=== PATIENT | male | born 1955 | race Caucasian/White ===

== ENCOUNTER 2021-12-26 09:46 | Outpatient (CLI) | payer BC, SELFPAY ==
--- NOTE | 2021-12-26 09:49 | MR_ITS ---
WS: [id number] MRI BRAIN WITH HIGH-RESOLUTION IMAGING THROUGH THE INTERNAL AUDITORY CANALS WITHOUT AND WITH CONTRAST HISTORY: Tinnitus, RIGHT hearing loss. COMPARISON: None available. TECHNIQUE: Multiplanar, multisequence imaging is performed through the brain. Additional 3 mm imaging performed in multiple planes through the internal auditory canal. Postcontrast imaging with 19 ml's of MultiHance. No acute intracranial hemorrhage, midline shift, edema or mass effect. There are a few scattered subcortical T2 and FLAIR signal hyperintensities throughout the brain. Thes e are consistent with microvascular ischemic changes. No mass effect. No prior infarct. No significan t volume loss. Ventricles and extra-axial spaces are normal. No inferior displacement of cerebellar tonsils. Clivus and pituitary gland are normal. Internal and external auditory canals: Unremarkable. Cranial nerves VII and VIII complexes: Unremarkable. No enhancement or mass. Cerebellopontine angles: Normal. Paranasal sinuses: Moderate mucoperiosteal thickening in the frontal and frontoethmoidal recesses. Th ere is a small mucous retention cyst in the LEFT maxillary sinus. Mastoid air cells: There is increased minimal fluid in the RIGHT mastoid air cells. Calvarium and scalp: Normal. Visualized [place] and dural venous sinuses demonstrate no abnormality. MR/MR iac's wo/w con* [id number] IMPRESSION: 1. Normal internal auditory canals. 2. Small amount of fluid in the RIGHT mastoid air cells. 3. Mild chronic microvascular ischemic disease.
== END 2021-12-26 09:47 | disposition home or self-care (01) ==
LOC: RAD 09:48
PROVIDERS: PCP Family Medicine; Visit Provider Specialist
DX: H93.11 Tinnitus, right ear (principal); I67.82 Cerebral ischemia
CPT/HCPCS: 70553; A9577

== ENCOUNTER → 2022-08-08 09:48 | Outpatient (BNVA) | payer BC, SELFPAY | PROVIDERS: PCP Family Medicine; Visit Provider Family Medicine | DX: I10 Essential (primary) hypertension (principal); L20.9 Atopic dermatitis, unspecified; R53.83 Other fatigue | CPT/HCPCS: 80053; 84443; 85025; 85651; 86140 ==

== ENCOUNTER → 2022-11-21 10:28 | Outpatient (BNVA) | payer BC, SELFPAY | PROVIDERS: PCP Family Medicine; Visit Provider Family Medicine | DX: R30.0 Dysuria (principal); I10 Essential (primary) hypertension; Z71.6 Tobacco abuse counseling; F17.200 Nicotine dependence, unspecified, uncomplicated; Z13.220 Encounter for screening for lipoid disorders; L50.8 Other urticaria; R60.0 Localized edema; Z12.5 Encounter for screening for malignant neoplasm of prostate | CPT/HCPCS: 80053; 80061; 84153 ==

== ENCOUNTER → 2022-12-20 10:04 | Outpatient (BNVA) | payer BC, SELFPAY | PROVIDERS: PCP Family Medicine; Visit Provider Family Medicine | DX: L50.8 Other urticaria (principal) | CPT/HCPCS: 88304 ==

== ENCOUNTER → 2023-12-25 10:26 | Outpatient (BNVA) | payer BC, SELFPAY | PROVIDERS: PCP Family Medicine; Visit Provider Family Medicine | DX: J18.9 Pneumonia, unspecified organism (principal); J06.9 Acute upper respiratory infection, unspecified; B96.89 Other specified bacterial agents as the cause of diseases classified elsewhere; R06.02 Shortness of breath | CPT/HCPCS: 71046 ==

== ENCOUNTER → 2024-04-30 09:34 | Outpatient (BNVA) | payer BC, SELFPAY | PROVIDERS: PCP Family Medicine; Visit Provider Family Medicine | DX: M25.562 Pain in left knee; M13.862 Other specified arthritis, left knee | CPT/HCPCS: 73562 ==

== ENCOUNTER 2024-05-18 12:00 | Outpatient (CLI) | payer BC, SELFPAY ==
--- NOTE | 2024-05-18 12:00 | USCV_ITS ---
Osvaldo Delgado Age: 69 Gender: M : 1955 Exam Date: 05/18/2024 12:11 Ordering Phys: Lc Suarez MD Technologist: CT [place] [facility] [place]: melissa BP: 124 / 64 HR: 70 Rhythm: Sinus Technical Quality: Adequate MEASUREMENTS (Male / Female) Normal Values 2D ECHO LVOT Diameter 2.2 cm LV Ejection Fraction MOD 2C 55.8 % LV Ejection Fraction 2C AL 54.9 % LA Diameter 3.1 cm RA Systolic Volume 4C AL 38.6 ml RA Systolic Volume 4C MOD 36.6 ml LA Sys Volume AL 39.4 cm cubed LA Sys Volume Index AL 20.1 cm cubed/m squared Aorta at Sinotubular Diameter 2.2 cm IVC Diameter 2.2 cm M-MODE LA Ao Ratio MM 1.3 AV Cusp Separation MM 1.7 cm DOPPLER AV Peak Velocity 268.0 cm/s LVOT Peak Velocity 104.0 cm/s AV Area Cont Eq vti 1.6 cm squared AV Area Cont Eq pk 1.4 cm squared MV Peak Velocity 114.0 cm/s MV Area PHT 4.1 cm squared Mitral E to A Ratio 0.9 TV Peak E Velocity 69.0 cm/s Right Atrial Pressure 3.0 mmHg PV Peak Velocity 122.0 cm/s FINDINGS Left Ventricle Normal left ventricular size and systolic function, EF 56%.no regional wall motion abnormalities. Mild left ventricular hypertrophy. Grade I/IV diastolic dysfunction (abnormal relaxation filling pattern), normal to mildly elevated filling pressures. Right Ventricle The right ventricle is normal in size and function. Right Atrium The right atrium is normal in size. Left Atrium The left atrium is normal in size. Mitral Valve Structurally normal mitral valve. Aortic Valve Mild aortic valve stenosis, mean gradient 14.4 mmHg, BRIDGETT 1.6 cm squared. Tricuspid Valve Structurally normal tricuspid valve. Pulmonic Valve No gross abnormalities noted Pericardium Normal pericardium without effusion. Aorta Normal ascending aorta dimension. IVC Normal inferior vena cava. CONCLUSIONS Normal left ventricular size and systolic function, EF 56%.no regional wall motion abnormalities. Mild left ventricular hypertrophy. Grade I/IV diastolic dysfunction (abnormal relaxation filling pattern), normal to mildly elevated filling pressures. Mild aortic valve stenosis, mean gradient 14.4 mmHg, BRIDGETT 1.6 cm squared. There is no pericardial effusion. There are no intracardiac masses. No similar previous studies are available for comparison Dr Boston Shelby MD [facility] (Electronically Signed) Final Date: 18 May 2024 23:08 S
== END 2024-05-18 12:01 | disposition home or self-care (01) ==
PROVIDERS: PCP Family Medicine; Visit Provider Family Medicine
DX: R06.09 Other forms of dyspnea (principal); I51.7 Cardiomegaly; I35.0 Nonrheumatic aortic (valve) stenosis; I35.8 Other nonrheumatic aortic valve disorders
CPT/HCPCS: 93306

== ENCOUNTER 2024-05-19 08:22 | Outpatient (RCR) | payer BC, SELFPAY | END 2024-05-24 23:59 | disposition home or self-care (01) | LOC: SPT 08:22 | PROVIDERS: PCP Family Medicine; Visit Provider Family Medicine | DX: M25.562 Pain in left knee (principal) | CPT/HCPCS: 97161 ==

== ENCOUNTER 2024-11-27 08:15 | Outpatient (CLI) | payer BC, SELFPAY ==
--- NOTE | 2024-11-27 08:30 | USCV_ITS ---
Osvaldo Delgado Age: 69 Gender: M : 1955 Exam Date: 11/27/2024 08:54 Ordering Phys: Lc Suarez MD Technologist: CT [place] [facility] [place]: PROCEDURES: Venous duplex imaging was performed in only the left lower extremity. On the left side, the common femoral, superficial femoral, profunda femoral, popliteal, posterior tibial, greater saphenous veins, and the peroneal trunk were identified and interrogated in the standard fashion. These veins were found to be easily compressible with spontaneous blood flow. No evidence of insufficiency or thrombus noted. FINDINGS: No dvt CONCLUSIONS No evidence of left lower extremity DVT. Angel Rodríguez MD (Electronically Signed) Final Date: 27 November 2024 12:25 S
== END 2024-11-27 08:16 | disposition home or self-care (01) ==
LOC: RAD 08:18
PROVIDERS: PCP Family Medicine; Visit Provider Family Medicine
DX: I73.9 Peripheral vascular disease, unspecified (principal)
CPT/HCPCS: 93971

== ENCOUNTER 2024-11-30 12:45 | Outpatient (CLI) | payer BC, SELFPAY ==
--- NOTE | 2024-11-30 12:45 | USCV_ITS ---
Osvaldo Delgado Age: 69 Gender: M : 1955 Exam Date: 11/30/2024 12:59 Ordering Phys: Lc Suarez MD Technologist: DEMOND Exam Location: [facility] [place] Indication: Claudication Risk Factors: Previous Vascular Surgery: RIGHT LEFT BP: 133.0 / 71.00 BP: 141.0/ 74.00 0 0 Waveform Velocity (cm/s) Velocity (cm/s) Waveform Triphasic 184.9 Iliac Prox 108.9 Triphasic Triphasic 106.2 Iliac Mid 112.6 Triphasic Triphasic Iliac Distal Triphasic 173.6 114.2 Triphasic 185.0 POWER TONG OPERATOR 178.0 Triphasic Triphasic 128.0 SFA Prox 82.0 Triphasic Triphasic 106.0 SFA Mid 61.0 Triphasic Triphasic 97.0 SFA Dist 48.0 Monophasic Triphasic 82.0 POP 97.0 Monophasic Triphasic 115.0 BEER MAKER 20.0 Monophasic Monophasic 27.0 DPA 22.0 Monophasic 1.2 YI 0.5 FINDINGS Resting YI 1.2 on the right side and 0.5 on the left side Monophasic and continuous waveforms in the infrapopliteal vessels on the left side with a low amplitude Mild to moderate diffuse plaque in the iliac and femoral artery on the right side. Moderate to heavy diffuse plaque in the plaque in the left common femoral artery. Moderate to heavy diffuse plaque in the femoral and popliteal arteries on the left side CONCLUSIONS 1. Abnormal resting YI of 0.5 on the left side suggesting severe peripheral artery disease possibly at the level of the distal SFA with features of collateral filling in the infrapopliteal vessels. 2. Normal resting YI 1.2 on the right side Dr Boston Shelby MD [facility] (Electronically Signed) Final Date: 01 December 2024 17:15 S
== END 2024-11-30 12:46 | disposition home or self-care (01) ==
LOC: RAD 12:48
PROVIDERS: PCP Family Medicine; Visit Provider Family Medicine
DX: I73.9 Peripheral vascular disease, unspecified (principal); R93.89 Abnormal findings on diagnostic imaging of other specified body structures
CPT/HCPCS: 93925

== ENCOUNTER → 2024-12-10 12:56 | Outpatient (BNVA) | payer BC, SELFPAY | PROVIDERS: PCP Family Medicine; Visit Provider Internal Medicine Cardiovascular Disease | DX: R07.9 Chest pain, unspecified (principal) | CPT/HCPCS: 93005 ==

== ENCOUNTER 2024-12-29 05:57 | Outpatient (CLI) | payer BC, SELFPAY ==
[2024-12-29] VITALS (7 sets, daily range): BP systolic 114–143; BP diastolic 62–77; PULSE 75–98; RESP 14–20; TEMP 36.1–36.9; O2SAT 90–96; BMI 27.5
[2024-12-29 06:22] LABS: Basophils % 0.3 %; Eosinophils # 0.2 10^3/uL (0.0-0.8); Eosinophils % 3.7 %; Hematocrit 41.1 % (37-53); Lymphocytes # 1.2 10^3/uL (0.8-4.8); Lymphocytes % 19.6 %; Mean Corpuscular HGB Conc 31.4 g/dL (30-55); Mean Corpuscular Hemoglobin 27.4 pg (27-33); Mean Corpuscular Volume 87.3 fl (82-101); Mean Platelet Volume 8.5 fL (7.4-10.4); Monocytes # 0.6 10^3/uL (0.2-0.9); Monocytes % 8.7 %; Neutrophils # 4.24 10^3/uL (1.8-7.7); Neutrophils % 67.4 %; Nucleated Red Blood Cells % 0 %; Platelet Count 246 10^3/cmm (157-399); Red Blood Count 4.71 10^6/uL (3.85-5.65); Red Cell Distribution Width 14.2 % (12.1-15.1); White Blood Count 6.29 10^3/uL (3.29-11.43)
[2024-12-29] MEDS: aspirin 325 mg Tablet PO (06:36)
[2024-12-29 06:43] LABS: Anion Gap 13.1 (5-19); Blood Urea Nitrogen 22 mg/dL (8-23); Calcium 8.6 mg/dL (8.5-10.5); Carbon Dioxide 28 mmol/L (22-29); Chloride 100 mmol/L (98-107); Glucose 109 mg/dL (65-115); Osmolality Calculated 288 mOsm/kg (285-295); Potassium 4.1 mmol/L (3.5-5.1); Sodium 137 mmol/L (136-145)
--- NOTE | 2024-12-29 07:00 | XACV_ITS ---
Wt: 82 kg BSA: 2.00 m2 Any Known Allergies: Other Gender: Male : 1955 Exam Type: Invasive Peripheral Vascular Procedure(s): Procedure Description: Diagnostic procedure Procedure Description: Peripheral Cath Diagnostic Procedure Procedure Description: Abdominal aortic angiography Procedure Description: Lower extremities' angiography Procedure Description: Peripheral vascular Intervention Procedure Description: PV Balloon Procedure Description: PV Atherectomy Procedure Description: Miscellaneous Procedure Description: ACT Exam Priority: Routine KHAMU2, Aleman; Lower Extremity Diagnostic Findings Indication for peripheral angiogram: Lifestyle limiting claudication Catheters used: UF, microcatheter seeker, long 6 Danish sheathAbdominal aortogram: Using UF catheter which was placed at the level of T12, abdominal angiogram with runoff was obtained Right renal artery: No significant abnormality Left renal artery: Patent no significant abnormalityUsing right common femoral sheath right leg angiogram was obtainedRight common iliac: Patent Right external iliac: Patent Right internal iliac: Patent Right common femoral artery: Patent Right profundofemoral artery: Patent Right SFA: Patent Right popliteal artery: Patent Right tibioperoneal trunk: Patent Right posterior tibial artery: Patent Right anterior tibial artery: Chronically occluded in the proximal segment Right peroneal artery: PatentUsing long 6 Danish sheath selective angiogram of the left lower extremity was obtained Left common iliac artery: Patent Left external iliac artery:: Patent Left internal iliac artery: Patent Left common femoral artery: Patent Left profundofemoral artery: Patent Left SFA artery: Patent Using micro seeker catheter, left popliteal artery and below the knee angiogram was obtained: Left popliteal artery 100% chronically occluded appeared to be very calcified Left tibioperoneal artery: 100% chronically occluded Left anterior tibial artery 100% chronically occluded fills faintly with collateral Left posterior tibial artery: 100% chronically occluded in the proximal fills with collaterals and can be traced down to the foot Left peroneal artery: 100% chronically occluded and fills with collaterals. Lower Extremity Interventional Findings Percutaneous intervention of left popliteal and tibioperoneal trunk. Using seeker and Glidewire advantage we were able to cross with somewhat difficulty through the chronically occluded left popliteal artery and tibioperoneal trunk into the posterior tibial artery. Multiple balloon angioplasty using Belle 3 x 120 x 150 balloon was performed and tibioperoneal trunk. Using 4 x 100 x 135 Belle balloon we then dilated popliteal artery. Lutonix drug-coated balloon was then used for the final balloon angioplasty of the left popliteal artery. Excellent angiographic result with good flow was obtained. There was a moderate lesion in the tibioperoneal trunk which was left as it does not appear to be hemodynamically significant. At the end of the procedure there was 2 vessel runoff including posterior tibial peroneal while anterior tibial was felt through collateral as it is chronically blocked in the midsegment. Conclusions Status post balloon angioplasty and drug-coated balloon of left popliteal tibioperoneal trunk with excellent angiographic result and uatsdin of the flow below the knee with good two-vessel runoff including posterior tibial and peroneal artery. Recommendations 1-Return to inpatient for close monitoring and routine cath care 2-Risk factor modification for secondary prevention 3-Statin and aspirin 81 mg life-long, if tolerated 4-Continue Plavix 75mg p.o. daily for at least one year. We will assess at the end of one year again to continue if further or not 5-Continue optimal medical management 6-Follow up with Dr. Aleman in four weeks and your primary care in 10 days. Hemodynamic Data Phase:Rest AO : 138.0 / 54.0 ( 83.0 ) @ 8:23:00 AM Access Site Site: Right Femoral artery Sheath Size: 6 Fr Hemost... Method: Suture Hemost... Success: Successful Procedure Details Findings Procedure Consent Obtained. Admit Source: Out Patient. Pre-Procedure Time Out. Identified patient by full name and date of as verbalized by the patient/guarantor. Does the consent match the physician's order: Yes. Accurate & Complete Informed Consent: Yes. Inpatient/Outpatient History & Physical on Chart: Yes. If H&P is completed, is and addenduem needed: No; If yes, is the addendum complete: N/A. Visualize and Verify Site with Patient/Guarantor: N/A. Relevant Radiology Images available: N/A. The risks, benefits, and alternatives of sedation and/or procedure were discussed by physician. The patient agrees to continue. IV Site on Arrival: 20 gauge in the right anticubital. Patient received 250 ml IV bolus in CPRU prior to arrival. Procedure started. Correct patient, site and procedure confirmed by cath team. Current diagnosis: PVD; INTERMITTENT CLAUDICATION. PERRLA. Strong, equal hand general manager road production bilaterally. Lungs clear x 5 lobes. IV Fluids: 0.9% NaCl at KVO. 250 mL infused prior to laborer laboratory. IV fluid rate set to 100 ml/hr per MD. Pre Procedural Pulses: bilateral posterior tibial was Doppled. Pre Procedural Pulses: bilateral dorsalis pedis was Doppled. Oxygen started at 3liters/min via nasal canula. bilateral groins was prepped with chloroprep then draped in the usual sterile fashion. Physician notified. Physician arrived. Physician scrubbed in. Immediate Pre-Procedure Time Out. Correct Patient: Yes; Correct Procedure: Yes; Correct Site: Yes; Correct Patient Position: Yes; Correct Supplies: Yes; Dried Flammable Prep: Yes; Blood Products Available: N/A;. Lidocaine 1% infiltrated to the right groin. Arterial access obtained. A 5FrFr UF catheter in over wire. Pigtail postioned above the bifurcation of the iliacs. Aortagram performed @ 10 mL/sec for a total of 30 mL. UF catheter positioned into the left common Iliac over the Glidewire advantage. Glidewire advanced to the Profunda, Left . UR catheter removed over the wire. Sheath upsized to a 6 Fr. Left common femoral selected and arteriogram with runoff performed @ 10 mL/sec for a total of 30 mL. Seeker inserted. Wire pulled back and advanced down the SFA; Left. Wire/Seeker parked in the Distal SFA; Left. Attempting to cross the Popliteal/TPT trunk. Wire out. Hand injection of the distal popliteal performed. Glidewire advantage reinserted. Wire/Seeker advanced down the Operations Executive tibial on the left side. Glidewire removed. Hand injection of the Posterior tibial, Left taken. Viper advance wire inserted. Seeker removed. 1.5 CSI sneha inserted. Orbital atherectomy of distal popliteal/Tibial peroneal trunk of the left side performed. 2nd round of Orbital atherectomy of distal popliteal/Tibial peroneal trunk of the left side performed. 3rd round of Orbital atherectomy of distal popliteal/Tibial peroneal trunk of the left side performed. CSI sneha removed. Seeker cather inserted over the viper wire. Viper wire removed. ACT drawn. Results 336 seconds. Therapeutic limits - pre-heparin administration 90-150 seconds and monitoring heparin during a vascular procedure >250 seconds. Command wire (300 cm) inserted through the seeker cather to the posterio tibial; left. Seeker catheter removed. Inflation number : 1 A AB ARMADA 14 OTW [id number] was prepped and advanced across the Proximal Posterior Tibial, Left , then inflated to 4 GOMEZ for 2:01 seconds. Inflation number: 2 The AB ARMADA 14 OTW [id number] was reinflated across the Proximal Posterior Tibial, Left, to 4 GOMEZ for 1:00 seconds. Inflation number: 1 The AB ARMADA 14 OTW [id number] was reinflated across the Tibial Peroneal Trunk, Left, to 4 GOMEZ for 1:26 seconds. Inflation number: 1 The AB ARMADA 14 OTW [id number] was reinflated across the Popliteal, Left, to 8 GOMEZ for 1:30 seconds. Inflation number: 2 The AB ARMADA 14 OTW [id number] was reinflated across the Popliteal, Left, to 8 GOMEZ for 0:59 seconds. Inflation number: 3 The AB ARMADA 14 OTW [id number] was reinflated across the Popliteal, Left, to 8 GOMEZ for 2:00 seconds. Balloon out. Inflation number : 2 A AB ARMADA 35 OTW [id number] was prepped and advanced across the Tibial Peroneal Trunk, Left , then inflated to 8 GOMEZ for 2:00 seconds. Inflation number: 3 The AB ARMADA 35 OTW [id number] was reinflated across the Tibial Peroneal Trunk, Left, to 8 GOMEZ for 0:33 seconds. Inflation number: 4 The AB ARMADA 35 OTW [id number] was reinflated across the Popliteal, Left, to 8 GOMEZ for 0:31 seconds. Balloon out. Left common femoral selected and arteriogram with runoff performed @ 10 mL/sec for a total of 30 mL. ACT drawn. Results 360 seconds. Therapeutic limits - pre-heparin administration 90-150 seconds and monitoring heparin during a vascular procedure >250 seconds. Inflation number : 5 A Lutonix 035 DCB (5.0X100) was prepped and advanced across the Popliteal, Left , then inflated to 6 GOMEZ for 2:00 seconds. Balloon out. Left common femoral selected and arteriogram with runoff performed @ 10 mL/sec for a total of 30 mL. Command wire out. Sheath exchanged to a 6 fr short sheath. Right common femoral selected and arteriogram with runoff performed @ 10 mL/sec for a total of 30 mL. Physician review of films. Physician scrubbed out. Vital chart was stopped. Sheath upsized to a 6 Fr. A Suture was successful obtaining hemostatsis at the Right Femoral artery insertion site. Sheath(s) sutured into position with 2-0 silk and sterile 4x4's and Op-site applied over the site. No oozing or signs and symptoms of hematoma noted. Arterial sheath flushed and connected to tranducer and pressure bag with heparinized saline. Post Procedure: Pulses reassessed and unchanged. PERRLA. Strong, equal hand general manager road production bilaterally. No VTE prophylaxis required. Medication's Wasted: Lidocaine 1% = 3 mL. Medication's Wasted: Nitro = 49.2 mg. Medication's Wasted: Heparin = 1000 units. Total IV fluids: 109 mL. Fluoro: 23:07. Contrast type used: Visipaque 320 mgI/mL, 200 mL bottle. [id number]. 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 Complications: None. Estimated blood loss: 5mL-10mL. Responsiveness - Normal response to verbal stimuli; alert and oriented, PERRLA. Airway - Unaffected, no intervention required; spontaneous ventilation. Circulation: W/N/L, pulses unchanged. Nausea/Vomiting: No. Procedure completed. Patient transferred by bed to 1st floor. Procedure started. Procedure Medications Start: 8:01 AM Stop: 8:01 AM Medication: Solu-Medrol (methylprednisolone) Amount: 125 mg Route: I.V. Start: 8:01 AM Stop: 8:01 AM Medication: Benadryl Amount: 50 mg Route: I.V. Start: 8:05 AM Stop: 8:05 AM Medication: Versed Amount: 1 mg Route: I.V. Start: 8:07 AM Stop: 8:07 AM Medication: Fentanyl Amount: 50 mcg Route: I.V. Start: 8:13 AM Stop: 8:13 AM Medication: Versed Amount: 1 mg Route: I.V. Start: 8:19 AM Stop: 8:19 AM Medication: Versed 1 mg and Fentanyl 25 mcg Amount: 1 Route: I.V. Start: 8:52 AM Stop: 8:52 AM Medication: Heparin Amount: 6000 units Route: I.V. Start: 8:57 AM Stop: 8:57 AM Medication: Versed 1 mg and Fentanyl 25 mcg Amount: 1 Route: I.V. Start: 8:58 AM Stop: 8:58 AM Medication: Heparin Amount: 2000 units Route: I.V. Start: 9:13 AM Stop: 9:13 AM Medication: Versed 1 mg and Fentanyl 25 mcg Amount: 1 Route: I.V. Start: 9:24 AM Stop: 9:24 AM Medication: Fentanyl Amount: 25 mcg Route: I.V. Start: 9:32 AM Stop: 9:32 AM Medication: Versed 1 mg and Fentanyl 25 mcg Amount: 1 Route: I.V. Start: 9:37 AM Stop: 9:37 AM Medication: Nitrogylcerin Amount: 400 mcg Route: I.A. Start: 9:50 AM Stop: 9:50 AM Medication: Nitrogylcerin Amount: 400 mcg Route: I.A. Start: 9:56 AM Stop: 9:56 AM Medication: Plavix Amount: 300 mg Route: P.O. Start: 9:56 AM Stop: 9:56 AM Medication: Fentanyl Amount: 25 mcg Route: I.V. I, the attending physician, have reviewed and verified all procedure medications. Yes, all medications given per verbal order History/Risk Factors Hypertension: Yes Dyslipidemia: Yes Peripheral Arterial Disease (PAD): Yes Obesity: No Renal Disease: No Prior Interventions PCI: No CABG: No Valve Surgery: No Report Signatures Finalized by Bib Aleman MD on 01/09/2025 04:22 PM
--- NOTE | 2024-12-29 08:09 | W.PM.OPSUD ---
Surgery/Procedure H&P Update DATE OF PROCEDURE: December 29, 2024 DATE H&P PERFORMED: 12/10/24 H&P UPDATE INFORMATION: I have reviewed H&P completed within last 30 days, I have examined patient prior to procedure and No changes to prior documentation PREOP DIAGNOSIS: Lifestyle limiting claudication of left leg PLANNED PROCEDURE: Operation Date: 12/29/24 07:00 Proposed Procedures p Peripheral Diagnostic - Peripheral Angiogram(Not Applicable) - Bib Aleman MD PATIENT REASSESSED PRIOR TO SEDATION, WITH NO CHANGE NOTED: Yes PHYSICAL EXAM: alert, oriented x 3, clear to auscultation bilaterally, regular rate & rhythm and operative site marked AIRWAY EVAL/ANESTHESIA PLAN: ASA II, Risks, benefits & alternatives of sedation and/or procedure discussed and Patient agrees to continue as planned ADDITIONAL INFORMATION: All risk-benefit and alternative for the procedure including stroke major bleed urgent or emergent vascular/surgery, limb threatening ischemia, amputation, limb loss, contrast-induced nephropathy leading to temporary or permanent renal failure. Patient agrees to it and would like to proceed with it. Alpha gal allergy was discussed, patient was premedicated with Solu-Medrol and Benadryl.
--- NOTE | 2024-12-29 10:07 | PM.PROC ---
Procedure Note: Date of procedure: 12/29/24 Pre-procedure diagnosis: Lifestyle-limiting claudication Procedure: Lifestyle limiting claudication: Peripheral angiogram was performed because of severe lifestyle limiting claudication. Patient was noted to have 100% chronically occluded left popliteal, tibioperoneal and below the knee arteries. After crossing with seeker and Glidewire, Viper wire was swapped through the seeker. Using 1.5 CSI bur atherectomy was performed in the popliteal and tibioperoneal trunk. Balloon angioplasty of proximal posterior tibial, tibioperoneal trunk, popliteal artery was performed. Lutonix drug-coated balloon was used to post dilate popliteal artery. Excellent angiographic result with good blood flow noted at the end of the case. Two-vessel runoff including posterior tibial peroneal artery was noted. Foot arch was reconstituted through those 2 vessels with collaterals towards the anterior tibial Plan Because of underlying chronic kidney disease we will continue IV fluid 100 mL/h for next 12-hour in order to prevent contrast induced nephropathy. Will recheck BMP CBC normal Once PTT is less than 45 right common femoral sheath will come out. Plavix 300 mg along with aspirin 81 mg will be given today. Continue home medications. Possible discharge tomorrow Full note to be dictated. Coding Level of Care Code Acute Code for Pawan Fwashley
[2024-12-29] MEDS: sodium chloride 0.9% 1,000 ML 100 ML IV (10:15)
[2024-12-29 13:29] LABS: Partial Thromboplastin Time 49.9 SECONDS (23.9-36.7)
[2024-12-29] MEDS: fentaNYL 50 mcg/mL INJ 2mL IVP (13:58)
[2024-12-29] MEDS: aspirin 81 mg EC Tablet PO (14:56)
[2024-12-29] MEDS: acetaminophen 325 mg Tablet 650 MG PO ×2 (15:30→21:18)
--- NOTE | 2024-12-29 19:59 | PC.NURSE ---
1400 sheath removed explained procedure to pt. 6 fr sheath removed on right groin. manual pressure held for 20 mins. No hematoma, swelling or bleeding noted. posterior tibial pulses are palpated+3. legs are warm. explained to pt about activity restriction and 6 hr bedrest. call light provided.
--- NOTE | 2024-12-29 20:03 | PC.NURSE ---
1054 received pt from lab systems analyst. pt is alert, orientedx4. denies any pain or discomfort. noted swelling on right leg and upper thigh. pt and stated the pt has had swelling previously and it is normal, stated his right leg is usually swollen than the left leg. pedal pulses palpable posterior tibial. call light provided to pt. educated pt on activity restrictions such as bedrest and no lifting on his right hip and leg.
[2024-12-30 00:46] VITALS: BP 123/69; PULSE 95; RESP 16; O2SAT 91
[2024-12-30 03:45] LABS: Basophils % 0.1 %; Hematocrit 37.2 % (37-53); Lymphocytes # 0.6 10^3/uL (0.8-4.8); Lymphocytes % 4.5 %; Mean Corpuscular HGB Conc 31.7 g/dL (30-55); Mean Corpuscular Hemoglobin 27.8 pg (27-33); Mean Corpuscular Volume 87.7 fl (82-101); Mean Platelet Volume 8.5 fL (7.4-10.4); Monocytes # 0.3 10^3/uL (0.2-0.9); Monocytes % 1.9 %; Neutrophils # 12.11 10^3/uL (1.8-7.7); Neutrophils % 93.1 %; Nucleated Red Blood Cells % 0 %; Platelet Count 246 10^3/cmm (157-399); Red Blood Count 4.24 10^6/uL (3.85-5.65); Red Cell Distribution Width 13.9 % (12.1-15.1); White Blood Count 13.01 10^3/uL (3.29-11.43)
[2024-12-30 04:10] LABS: Anion Gap 14.5 (5-19); Blood Urea Nitrogen 27 mg/dL (8-23); Calcium 8.2 mg/dL (8.5-10.5); Carbon Dioxide 23 mmol/L (22-29); Chloride 102 mmol/L (98-107); Creatinine Clr Calc Pharmacy 47.2011; Glucose 140 mg/dL (65-115); Osmolality Calculated 287 mOsm/kg (285-295); Potassium 4.5 mmol/L (3.5-5.1); Sodium 135 mmol/L (136-145)
[2024-12-30 04:59] VITALS: BP 131/66; PULSE 95; RESP 18; TEMP 36.8; O2SAT 92
[2024-12-30 05:44] VITALS: PULSE 93
[2024-12-30 08:00] VITALS: BP 143/65; PULSE 95; RESP 20; TEMP 36.5; O2SAT 92
[2024-12-30] MEDS: aspirin 81 mg EC Tablet PO (08:19)
[2024-12-30] MEDS: clopidogrel 75 mg Tablet PO (08:19)
--- NOTE | 2024-12-30 11:43 | PC.NURSE ---
right groin (cath site) drsg is dry and intact.no hematoma noted.right leg is warm to touch and with brisk capillary refill
[2024-12-30 12:00] VITALS: BP 145/66; PULSE 88; RESP 18; TEMP 36.4; O2SAT 95
--- NOTE | 2024-12-30 15:02 | P.DS_ITS ---
<Statement entered by Bib Aleman MD - 12/31/24 00:19> Patient was evaluated and cared for in conjunction with an advanced practice practitioner. I personally examined the patient and reviewed the chart and all pertinent data including imaging, telemetry, and laboratory results. I discussed the patient in detail with the advanced practice practitioner. Please see their note for complete H&P testing result and agreed upon plan of care for the patient. Discharge Providers Date of Admission: 12/29/2024 Date of Discharge: December 30, 2024 Attending Provider at Admission: Dr. Aleman Attending Provider at Discharge: Bib Aleman MD Primary Care Provider: Lc Suarez MD Reason for Visit Reason for Visit: I73.9 Brief History: The patient is a 69-year-old male presenting with lifestyle-limiting claudication. The claudication started as cramping in the left calf, progressing into the diallo and foot, eventually developing into throbbing pain. The patient reported a significant reduction in exercise tolerance attributed to these symptoms. He has a history of tobacco use, smoking for the past 50 years. The patient also noted swelling in the left leg for the past couple of months, and similar painful sensations have recently developed in the right foot. There is no reported history of heart problems, chest pain, or stroke-like symptoms. Blood pressure has been typically running between 125 to 130 mmHg. Heart studies have indicated a leaky heart valve, considered manageable for his age. He has not been sleeping well due to foot cramps, which wake him from sleep. Previously, he had undergone an ankle-brachial index (YI) test and ultrasound showing blockage in the left femoral and popliteal arteries. Despite these ongoing issues, the swelling in his legs does not substantially decrease by morning. Hospital Course Hospital Course Peripheral angiogram was performed because of severe lifestyle limiting claudication. Patient was noted to have 100% chronically occluded left popliteal, tibioperoneal and below the knee arteries. After crossing with seeker and Glidewire, Viper wire was swapped through the seeker. Using 1.5 CSI bur atherectomy was performed in the popliteal and tibioperoneal trunk. Balloon angioplasty of proximal posterior tibial, tibioperoneal trunk, popliteal artery was performed. Lutonix drug-coated balloon was used to post dilate popliteal artery. Excellent angiographic result with good blood flow noted at the end of the case. Two-vessel runoff including posterior tibial peroneal artery was noted. Foot arch was reconstituted through those 2 vessels with collaterals towards the anterior tibial. Patient was given fluids. Creatinine decreased to 1.5 from 1.6. Patient had excellent pulses after w/o complications. Physical Exam Narrative: General: No apparent distress, healthy appearing, well nourished HENMT: normoceophalic Neck: bilateral carotid bruit Muskuloskeletal: Full ROM Lymphatic: no lymphedema noted Respiratory: Normal respiratory effort, clear to auscultation bilaterally throughout all lung epstein, no use of accessory muscles Cardio: No JVD, regular rate, regular rhythm, S1 S2 normal, no murmurs, peripheral pulses 2+ radial palpated bilaterally Pulses: 2+ biphasic PT and DP bilateral lower extremities dopplered GI: Normal to inspection, nondistended Extremities: Full ROM, normal, normal capillary refill, no cyanosis or edema Neuro: Alert and oriented x4, no focal motor deficits Psych: Affect normal, denies suicidal ideation, mental status grossly normal Skin: right groin insertion site clean, dry, intat w/o s/s of hematoma Discharge Data Studies Completed and Pending Pending at discharge Category Date Time Status FINAL FINISHER FORGING DIES request for service Routine Exams 12/29/24 07:00 Taken Laboratory Results WBC 13.01 10^3/uL (3.29-11.43) H 12/30/24 03:20 RBC 4.24 10^6/uL (3.85-5.65) 12/30/24 03:20 Hgb 11.80 g/dL (11.27-16.99) 12/30/24 03:20 Hct 37.2 % (37-53) 12/30/24 03:20 MCV 87.7 fl (82-101) 12/30/24 03:20 MCH 27.8 pg (27-33) 12/30/24 03:20 MCHC 31.7 g/dL (30-55) 12/30/24 03:20 RDW 13.9 % (12.1-15.1) 12/30/24 03:20 Plt Count 246 10^3/cmm (157-399) 12/30/24 03:20 MPV 8.5 fL (7.4-10.4) 12/30/24 03:20 Neut % (Auto) 93.1 % 12/30/24 03:20 Lymph % (Auto) 4.5 % 12/30/24 03:20 [place] % (Auto) 1.9 % 12/30/24 03:20 Eos % (Auto) 0.0 % 12/30/24 03:20 Baso % (Auto) 0.1 % 12/30/24 03:20 Neut # (Auto) 12.11 10^3/uL (1.8-7.7) H 12/30/24 03:20 Lymph # (Auto) 0.6 10^3/uL (0.8-4.8) L 12/30/24 03:20 [place] # (Auto) 0.3 10^3/uL (0.2-0.9) 12/30/24 03:20 Eos # (Auto) 0.0 10^3/uL (0.0-0.8) 12/30/24 03:20 Baso # (Auto) 0.0 10^3/uL (0.0-0.1) 12/30/24 03:20 Nucleated RBC % (auto) 0 % 12/30/24 03:20 Nucleated RBCs # 0.0 /100WBC 12/30/24 03:20 APTT 49.9 SECONDS (23.9-36.7) H 12/29/24 13:01 Sodium 135 mmol/L (136-145) L 12/30/24 03:20 Potassium 4.5 mmol/L (3.5-5.1) 12/30/24 03:20 Chloride 102 mmol/L (98-107) 12/30/24 03:20 Carbon Dioxide 23 mmol/L (22-29) 12/30/24 03:20 Anion Gap 14.5 (5-19) 12/30/24 03:20 BUN 27 mg/dL (8-23) H 12/30/24 03:20 Creatinine 1.5 mg/dL (0.7-1.2) H 12/30/24 03:20 GFR Calculation Not Reportable 12/30/24 03:20 Glucose 140 mg/dL (65-115) H 12/30/24 03:20 Calculated Osmolality 287 mOsm/kg (285-295) 12/30/24 03:20 Calcium 8.2 mg/dL (8.5-10.5) L 12/30/24 03:20 Procedures Performed Peripheral angiogram was performed because of severe lifestyle limiting claudication. Patient was noted to have 100% chronically occluded left popliteal, tibioperoneal and below the knee arteries. After crossing with seeker and Glidewire, Viper wire was swapped through the seeker. Using 1.5 CSI bur atherectomy was performed in the popliteal and tibioperoneal trunk. Balloon angioplasty of proximal posterior tibial, tibioperoneal trunk, popliteal artery was performed. Lutonix drug-coated balloon was used to post dilate popliteal artery. Excellent angiographic result with good blood flow noted at the end of the case. Two-vessel runoff including posterior tibial peroneal artery was noted. Foot arch was reconstituted through those 2 vessels with collaterals towards the anterior tibial Vitals Last Vital Signs Temp 97.6 F 12/30/24 12:00 Pulse 88 12/30/24 12:00 Resp 18 12/30/24 12:00 BP 145/66 12/30/24 12:00 Pulse Ox 95 12/30/24 12:00 O2 Del Method Room Air 12/30/24 12:00 Discharge Plan Discharge Patient Disposition: Home Prescriptions: New Xarelto 2.5 mg tablet 2.5 mg PO BID Qty: 90 0RF pantoprazole [Protonix] 40 mg tablet,delayed release (DR/EC) 40 mg PO DAILY Qty: 90 0RF clopidogrel [Plavix] 75 mg tablet 75 mg PO DAILY 90 Days Qty: 90 0RF Continued triamcinolone acetonide 0.1 % ointment 1 applic topical DAILY PRN (Reason: itch) ipratropium bromide 0.02 % solution 2.5 ml inhalation Q6H PRN (Reason: shortness of breath or wheezing) Qty: 75 2RF albuterol sulfate 2.5 mg /3 mL (0.083 %) solution for nebulization 2.5 mg inhalation QID PRN (Reason: shortness of breath) Qty: 90 2RF (DME) nebulizer and supplies See Rx Instructions .Route .MEDSUPPLY Qty: 1 0RF Rx Instructions: As directed albuterol sulfate 90 mcg/actuation HFA aerosol inhaler See Rx Instructions .ROUTE .COMPLEX Qty: 8.5 11RF Dose Instruction: INHALE 2 PUFFS BY MOUTH EVERY 4 HOURS Rx Instructions: INHALE 2 PUFFS BY MOUTH EVERY 4 HOURS cetirizine [Zyrtec] 10 mg tablet 10 mg PO BID Qty: 60 3RF triamcinolone acetonide [Nasacort] 55 mcg aerosol,spray 2 spray intranasal DAILY Qty: 16.9 0RF Rx Instructions: administer into each nostril atorvastatin 40 mg tablet See Rx Instructions .ROUTE .COMPLEX Qty: 90 0RF Dose Instruction: TAKE 1 TABLET BY MOUTH EVERY DAY Rx Instructions: TAKE 1 TABLET BY MOUTH EVERY DAY Breo Ellipta 50-25 mcg/dose blister with device 1 inh inhalation DAILY Qty: 60 2RF montelukast [Singulair] 10 mg tablet 10 mg PO DAILY Qty: 90 1RF amlodipine 5 mg tablet See Rx Instructions .ROUTE .COMPLEX Qty: 135 0RF Dose Instruction: TAKE 1 AND 1/2 TABLETS DAILY BY MOUTH Rx Instructions: TAKE 1 AND 1/2 TABLETS DAILY BY MOUTH Discontinued famotidine 20 mg tablet 20 mg PO BID Qty: 180 1RF torsemide 20 mg tablet 20 mg PO QAM Qty: 30 1RF cilostazol 50 mg tablet 50 mg PO BID Qty: 180 1RF Discharge Orders: Discharge Order (Routine); Ordered 12/30/24 Ordered By: Era Cameron Other Ambulatory Orders: Basic Metabolic Panel (Routine) Timeframe: 3 Days Facility: [facility] - Location: Lab - Main Lab Ordered By: Era Cameron CV carotid duplex BI* [id number] (Routine) Timeframe: 2 Weeks Facility: [facility] - Location: Radiology [facility] Ordered By: Era Cameron Referrals: Rupali Dempsey FNP [Nurse Practitioner] - 01/06/25 3:00 pm Lc Suarez MD [Primary Care Provider] - 01/11/25 10:30 am (This appointment will be scheduled with Kassandra Jeter. ) Diet: Advance as tolerated Activity: Increase activity as tolerated Patient Instructions: Peripheral Vascular Angioplasty (DC), Post Angiogram Home Care Instructions Activity Restrictions/Additional Instructions: Discussed with patient no heavy lifting more than a gallon of milk as well as going up or down steps for 3 days[address] No driving for 3 days. Monitor for and report signs or symptoms of bleeding. Monitor for and report s/s of infection such as fever 101 or greater, swelling, redness or pain to the groin. Patient will be discharged home on xarelto and Plavix for 3 months, then can take aspirin 81 mg only. We will see him in the clinic in 7-10 days. Smoking cessation was advised. Because patient has bilateral carotid bruit worse on the right, a carotid doppler will be performed on outpatient basis. Print Language: Swazi Discharge Date/Time: 12/30/24 13:40 Discharge Attestations Time Spent in Discharge Care*: less than 30 min Time Spent in Smoking Cessation: 3 to 10 minutes Quality Metrics Clinical Quality Measures [ No reported AMI, CVA or VTE this stay] Coding Level of Care Code Acute Code for Chg Fwd
--- NOTE | 2024-12-30 15:31 | PC.NURSE ---
discharge instructions given and explained.pt verb understanding of instructions.discharged via w/c to exit at this time.spouse to drive pt home
[2024-12-30 15:33] VITALS: BP 145/66; PULSE 75; RESP 20; O2SAT 92
== END 2024-12-30 15:35 | disposition home or self-care (01) ==
LOC: CCL 05:58 → CSU 10:54
PROVIDERS: PCP Family Medicine; Visit Provider Internal Medicine Cardiovascular Disease
DX: I70.212 Atherosclerosis of native arteries of extremities with intermittent claudication, left leg (principal); I70.92 Chronic total occlusion of artery of the extremities; R09.89 Other specified symptoms and signs involving the circulatory and respiratory systems; I12.9 Hypertensive chronic kidney disease with stage 1 through stage 4 chronic kidney disease, or unspecified chronic kidney disease; N18.9 Chronic kidney disease, unspecified; E78.00 Pure hypercholesterolemia, unspecified; F17.210 Nicotine dependence, cigarettes, uncomplicated
CPT/HCPCS: 36415; 37224; 37225; 37228; 37233; 75625; 75716; 80048; 85025; 85347; 85730; 96374; 96375; 96376; 99152; 99153; C1724; C1725; C1769; C1887; C1894; C2623; J1200; J1644; J2250; J2919; J3010; J3490; J7030; Q9967

== ENCOUNTER → 2025-01-20 16:05 | Outpatient (BNVA) | payer BC, SELFPAY | PROVIDERS: PCP Family Medicine; Visit Provider Nurse Practitioner Family | DX: I73.9 Peripheral vascular disease, unspecified (principal); Z09 Encounter for follow-up examination after completed treatment for conditions other than malignant neoplasm | CPT/HCPCS: 36415; 80048 ==

== ENCOUNTER 2025-04-13 15:00 | Observation (INO) | payer MEDICARE, SELFPAY ==
[2025-04-13] VITALS (7 sets, daily range): BP systolic 119–156; BP diastolic 74–113; PULSE 71–94; RESP 15–18; TEMP 36.5–36.8; O2SAT 92–98; BMI 26.1
--- NOTE | 2025-04-13 07:30 | XACV_ITS ---
Ht: 173 cm Wt: 78 kg BSA: 1.95 m2 Any Known Allergies: Other Gender: Male : 1955 Exam Type: Invasive Peripheral Vascular Procedure(s): Procedure Description: Peripheral vascular Intervention Procedure Description: PV Balloon Procedure Description: PV Stent Procedure Description: PV Atherectomy Exam Priority: Routine [facility]; Conclusions a Indication for peripheral angiogram: Critical limb ischemia Catheters used:Rim. Long 6 [place] Citizen sheath, seekerAbdominal aortogram: Not performed Right renal artery: Not performed Left renal artery: Not performed Selective angiogram of the left lower extremity was performed using long 6 [place] Citizen sheath Left common iliac artery: Patent Left external iliac artery: Patent Left common femoral artery: Patent Left profundofemoral artery: Patent Left SFA artery: Patent Left popliteal artery: Moderate to high-grade calcified stenosis, while crossing with a wire it was stable to cross the lesion Left tibioperoneal artery: Mid moderate to high-grade stenosis at the origin of left anterior tibial artery Left anterior tibial artery: Chronically occluded calcified vessel in the proximal segment no flow in the mid to distal is noted Left posterior tibial artery: Patent all the way to the foot forming the arch Left peroneal artery: Patent all the way to the foot. Left anterior tibial artery atherectomy: Left anterior tibial artery was first crossed with Glidewire with somewhat difficulty which was switched over to a Viper wire through noelle, using 1.25 sneha CSI atherectomy multiple runs were performed in anterior tibial artery from proximal to distal segment. Viperwire was then exchanged out with a run-through wire using 2.5 x 120 x 150 [place] balloon multiple balloon angioplasty of the left anterior tibial artery was performed from distal to proximal segment, despite of that we were not able to restore the flow, it was observed there is possible dissection in the proximal anterior tibial artery, we then deployed BTK scaffold system 3.0 x 28mm, it was then postdilated with noncompliant balloon, despite of that we were not able to restore the flow, since it is already occluded chronic artery despite of atherectomy balloon angioplasty and scaffold deployment were not able to restore the flow therefore we decided to perform balloon angioplasty of the mid tibioperoneal trunk and popliteal artery which has eccentric high-grade stenosis because of calcified inner vessel as no wire was not crossing multiple time and had difficulty in crossing it.Balloon angioplasty of the mid tibioperoneal trunk was performed using 4 x 40 x 150 [place] balloon at high atmospheres for 2 minutes with good angiographic result which improved eccentric 70 to 80% stenosis to 30 to 40%Angioplasty of the distal popliteal artery: Using 6.0x100 x 135 mm [place] AB balloon balloon angioplasty of the popliteal left artery was performed revealing good result. Two-vessel good runoff was noted in anterior tibial and left peroneal artery however we were not able to open up left anterior descending artery since we have 2 good vessel runoff which provide supply hopefully patient will develop some collateral through these 2 vessel towards left anterior tibial artery and since we have already performed balloon angioplasty of the popliteal left artery and tibioperoneal trunk we think hopefully with improved and blood flow it will improve patient walking distance and reduce critical limb ischemia episode. Recommendations 1-Return to inpatient for close monitoring and routine cath care 2-Risk factor modification for secondary prevention 3-Statin and aspirin 81 mg life-long, if tolerated 4-Continue antiplatelet and anticoagulation. 5-Continue optimal medical management 6-Follow up with Dr. Aleman in four weeks and your primary care in 10 days. Hemodynamic Data Phase:Rest AO : 109.0 / 52.0 ( 75.0 ) @ 11:33:00 AM 115.0 / 52.0 ( 78.0 ) @ 12:17:00 PM 120.0 / 63.0 ( 89.0 ) @ 1:40:00 PM Access Site Site: Right Femoral artery Sheath Size: 6 Fr Hemost... Method: Suture Hemost... Success: Successful Procedure Details Findings Procedure Consent Obtained. Pre-Procedure Time Out. Identified patient by full name and date of as verbalized by the patient/guarantor. Does the consent match the physician's order: Yes. Accurate & Complete Informed Consent: Yes. Inpatient/Outpatient History & Physical on Chart: Yes. If H&P is completed, is and addenduem needed: No; If yes, is the addendum complete: N/A. Visualize and Verify Site with Patient/Guarantor: N/A. Relevant Radiology Images available: Yes. Pre-op teaching completed and patient verbalized understanding. The risks, benefits, and alternatives of sedation and/or procedure were discussed by physician. The patient agrees to continue. Procedure started. PERRLA. Strong, equal hand resawyer bilaterally. Lungs clear x 5 lobes. IV Site on Arrival: 20 gauge in the right anticubital. IV Fluids: 0.9% NaCl at KVO. 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 Pre Procedural Pulses: bilateral dorsalis pedis was Doppled. Pre Procedural Pulses: bilateral posterior tibial was Doppled. Pre Procedural Pulses: bilateral radial was 3+. Oxygen started at 2liters/min via nasal canula. bilateral groins was prepped with chloroprep then draped in the usual sterile fashion. Baseline sample Acquired. HR: 74 BPM. Physician arrived. Physician scrubbed in. Immediate Pre-Procedure Time Out. Correct Patient: Yes; Correct Procedure: Yes; Correct Site: Yes; Correct Patient Position: Yes; Correct Supplies: Yes; Dried Flammable Prep: Yes; Blood Products Available: N/A;. Lidocaine 1% infiltrated to the right groin. Arterial access obtained with micropuncture set. A 5Fr RIM catheter in over the wire. Wire out. Glidewire inserted. Catheter out over the wire. The short 6Fr sheath was exchanged for a 45cm 6Fr Flexor sheath. Sheath injected in Left common femoral artery and runoff performed. Seeker inserted OTW. Seeker placed in the left popliteal artery. Wire removed. Contrast hand injected through the catheter. DSA performed of the left lower leg. 0.014 Command 14 MT wire inserted and advanced through the seeker catheter to the left anterior tibial artery. Wire out. Contrast hand injected through the seeker catheter. Glidewire inserted. Seeker catheter removed OTW. Seeker inserted OTW. Wire out. Contrast hand injected through the seeker catheter. 300cm Runthrough wire inserted and advanced to the left AT. Seeker removed OTW. 2.5b002dn [place] 14 inserted OTW and advanced to the left AT. Runthrough wire removed. Viperwire inserted. Balloon out OTW. 1.25mm [place] sneha inserted OTW and advanced to the left Tibial Peroneal Trunk. Orbital atherectomy performed of the tibial peroneal trunk. Orbital atherectomy performed of the left anterior tibial artery. [place] removed OTW. Wire out. Runthrough wire inserted. Wire out. A new 300cm Runthrough wire inserted and advanced to the anterior tibial artery. Seeker catheter inserted OTW. Another 300cm Runthrough wire inserted through the seeker catheter and advanced to the peroneal artery. Seeker catheter removed over both wires. Inflation number : 1 A AB ARMADA 14 OTW [id number] was prepped and advanced across the Anterior Tibial, Left , then inflated to 8 GOMEZ for 2:00 seconds. Inflation number: 2 The AB ARMADA 14 OTW [id number] was reinflated across the Anterior Tibial, Left, to 8 GOMEZ for 2:01 seconds. Balloon out over wire. Inflation number : 1 A AB ARMADA 14 OTW [id number] was prepped and advanced across the Tibial Peroneal Trunk, Left , then inflated to 4 GOMEZ for 1:59 seconds. Balloon out over wire. Inflation number : 1 A AB ARMADA 35 OTW [id number] was prepped and advanced across the Popliteal, Left , then inflated to 8 GOMEZ for 1:59 seconds. Inflation number: 2 The AB ARMADA 35 OTW [id number] was reinflated across the Popliteal, Left, to 4 GOMEZ for 2:00 seconds. Inflation number: 1 The AB ARMADA 35 OTW [id number] was reinflated across the Superficial Femoral, Left, to 6 GOMEZ for 1:00 seconds. Balloon out over wire. Results checked. Seeker inserted OTW to the left anterior tibial. AT Wire out. Contrast hand injected through the catheter. Runthrough wire inserted and advanced to the AT. Seeker catheter out OTW. Inflation number: 3 The AB ARMADA 14 OTW [id number] was reinflated across the Anterior Tibial, Left, to 4 GOMEZ for 1:02 seconds. Inflation number: 4 The [place] 14 OTW [id number] was reinflated across the Anterior Tibial, Left, to 8 GOMEZ for 1:01 seconds. Inflation number: 5 The AB ARMADA 14 OTW [id number] was reinflated across the Anterior Tibial, Left, to 4 GOMEZ for 1:00 seconds. Inflation number: 6 The AB ARM[place] 14 OTW [id number] was reinflated across the Anterior Tibial, Left, to 4 GOMEZ for 1:02 seconds. Balloon out over wire. Results checked. Seeker inserted OTW and advanced to the AT. Wire out. Contrast hand injected through the catheter. Seeker out. Inflation Number : 7 A Esprit BTK Scaffold System 3.0x28mm -Lot Number# _[id number] EXP: 05/17/2026 was prepped and advanced across the Anterior Tibial, Left. The stent was deployed at 9 GOMEZ for 0:30 seconds. Stent balloon out over wire. Results checked. Results checked. Inflation number : 8 A [place] 14 OTW [id number] was prepped and advanced across the Anterior Tibial, Left , then inflated to 4 GOMEZ for 2:01 seconds. Inflation number: 9 The [place] 14 OTW [id number] was reinflated across the Anterior Tibial, Left, to 4 GOMEZ for 2:02 seconds. Inflation number: 10 The AB [place] 14 OTW [id number] was reinflated across the Anterior Tibial, Left, to 4 GOMEZ for 0:21 seconds. Balloon out over wire. Seeker inserted OTW and advanced to the AT. Wire out. Contrast hand injected through the catheter. Seeker out. Results checked. The Flexor sheath exchanged for a short 6Fr sheath. Sheath upsized to a 7 Fr. A Suture was successful obtaining hemostatsis at the Right Femoral artery insertion site. Sheath(s) sutured into position with 2-0 silk and sterile 4x4's and Op-site applied over the site. No oozing or signs and symptoms of hematoma noted. Arterial sheath flushed and connected to tranducer and pressure bag with heparinized saline. Post Procedure: Pulses reassessed and unchanged. PERRLA. Strong, equal hand resawyer bilaterally. No VTE prophylaxis required. Medication's Wasted: Other = Versed 1 mg. Total IV fluids: 250 mL. Post-op diagnosis: PAD. Complications: None. Estimated blood loss: 5mL-10mL. Responsiveness - Normal response to verbal stimuli; alert and oriented, PERRLA. Airway - Unaffected, no intervention required; spontaneous ventilation. Circulation: W/N/L, pulses unchanged. Nausea/Vomiting: No. Procedure completed. Patient transferred by stretcher to CPRU. Vital chart was stopped. Procedure Medications Start: 10:08 AM Stop: 10:08 AM Medication: Versed Amount: 1 mg Route: I.V. Start: 10:08 AM Stop: 10:08 AM Medication: Fentanyl Amount: 50 mcg Route: I.V. Start: 10:10 AM Stop: 10:10 AM Medication: Benadryl Amount: 50 mg Route: I.V. Start: 10:18 AM Stop: 10:18 AM Medication: Versed Amount: 1 mg Route: I.V. Start: 10:41 AM Stop: 10:41 AM Medication: Versed Amount: 1 mg Route: I.V. Start: 10:46 AM Stop: 10:46 AM Medication: Fentanyl Amount: 25 mcg Route: I.V. Start: 10:53 AM Stop: 10:53 AM Medication: Versed Amount: 1 mg Route: I.V. Start: 11:02 AM Stop: 11:02 AM Medication: Fentanyl Amount: 25 mcg Route: I.V. Start: 11:08 AM Stop: 11:08 AM Medication: Fentanyl Amount: 25 mcg Route: I.V. Start: 11:16 AM Stop: 11:16 AM Medication: Fentanyl Amount: 25 mcg Route: I.V. Start: 11: AM Stop: : AM Medication: Versed Amount: 1 mg Route: I.V. Start: 11:30 AM Stop: :30 AM Medication: Fentanyl Amount: 25 mcg Route: I.V. Start: 11:31 AM Stop: 11:31 AM Medication: Fentanyl Amount: 25 mcg Route: I.V. Start: 11:35 AM Stop: 11:35 AM Medication: Angiomax (5mg/mL) Amount: 58.5 ml Route: I.V. bolus Start: 11:38 AM Stop: 11:38 AM Medication: Morphine Amount: 2 mg Route: I.V. Start: 11:51 AM Stop: 11:51 AM Medication: Morphine Amount: 2 mg Route: I.V. Start: 12:02 PM Stop: 12:02 PM Medication: Versed Amount: 1 mg Route: I.V. Start: 12:08 PM Stop: 12:08 PM Medication: Nitrogylcerin Amount: 400 mcg Route: I.A. Start: 12:15 PM Stop: 12:15 PM Medication: Fentanyl Amount: 50 mcg Route: I.V. Start: 12:16 PM Stop: 12:16 PM Medication: Nitrogylcerin Amount: 400 mcg Route: I.A. Start: 12:34 PM Stop: 12:34 PM Medication: Nitrogylcerin Amount: 400 mcg Route: I.A. Start: 12:41 PM Stop: 12:41 PM Medication: Fentanyl Amount: 50 mcg Route: I.V. Start: 12:54 PM Stop: 12:54 PM Medication: Nitrogylcerin Amount: 400 mcg Route: I.A. Start: 12:55 PM Stop: 12:55 PM Medication: Angiomax (5mg/mL) Amount: 21.8 ml/hr Route: I.V. drip Start: 1:02 PM Stop: 1:02 PM Medication: Versed Amount: 1 mg Route: I.V. Start: 1:16 PM Stop: 1:16 PM Medication: Nitrogylcerin Amount: 400 mcg Route: I.A. Start: 1:25 PM Stop: 1:25 PM Medication: Plavix Amount: 75 mg Route: P.O. I, the attending physician, have reviewed and verified all procedure medications. Yes, all medications given per verbal order History/Risk Factors Hypertension: Yes Dyslipidemia: Yes Peripheral Arterial Disease (PAD): Yes Obesity: No Renal Disease: No Tobacco Use: Current/Recent(w/in 1 year) Prior Interventions PCI: No CABG: No Valve Surgery: No Report Signatures Finalized by Bib Aleman MD on 04/25/2025 05:36 PM
[2025-04-13 08:09] LABS: Basophils # 0.1 10^3/uL (0.0-0.1); Basophils % 0.7 %; Eosinophils # 0.3 10^3/uL (0.0-0.8); Eosinophils % 4.5 %; Hematocrit 44.4 % (37-53); Lymphocytes # 1.2 10^3/uL (0.8-4.8); Lymphocytes % 16.9 %; Mean Corpuscular Hemoglobin 28.3 pg (27-33); Mean Corpuscular Volume 88.6 fl (82-101); Mean Platelet Volume 8.5 fL (7.4-10.4); Monocytes # 0.6 10^3/uL (0.2-0.9); Monocytes % 7.9 %; Neutrophils # 5.01 10^3/uL (1.8-7.7); Neutrophils % 69.9 %; Nucleated Red Blood Cells % 0 %; Platelet Count 217 10^3/cmm (157-399); Red Blood Count 5.01 10^6/uL (3.85-5.65); Red Cell Distribution Width 15.4 % (12.1-15.1); White Blood Count 7.17 10^3/uL (3.29-11.43)
[2025-04-13 08:28] LABS: Anion Gap 15.2 (5-19); Blood Urea Nitrogen 14 mg/dL (8-23); Carbon Dioxide 25 mmol/L (22-29); Chloride 105 mmol/L (98-107); Glucose 96 mg/dL (65-115); Osmolality Calculated 292 mOsm/kg (285-295); Potassium 4.2 mmol/L (3.5-5.1); Sodium 141 mmol/L (136-145)
[2025-04-13 08:33] LABS: Creatinine Clr Calc Pharmacy 46.1579
[2025-04-13] MEDS: aspirin 325 mg Tablet PO (08:33)
--- NOTE | 2025-04-13 10:09 | W.PM.OPSUD ---
Surgery/Procedure H&P Update DATE OF PROCEDURE: April 13, 2025 DATE H&P PERFORMED: 04/13/25 H&P UPDATE INFORMATION: I have reviewed H&P completed within last 30 days, I have examined patient prior to procedure and No changes to prior documentation PREOP DIAGNOSIS: Lifestyle-limiting claudication PRIMARY INDICATION FOR PROCEDURE: Lifestyle limiting claudication despite of optimization of medicine. PLANNED PROCEDURE: Operation Date: 04/13/25 08:30 Proposed Procedures p Peripheral Diagnostic - PERIP angio left leg(Left) - Bib Aleman MD PATIENT REASSESSED PRIOR TO SEDATION, WITH NO CHANGE NOTED: Yes PHYSICAL EXAM: alert, oriented x 3, clear to auscultation bilaterally, regular rate & rhythm and operative site marked AIRWAY EVAL/ANESTHESIA PLAN: ASA II, Risks, benefits & alternatives of sedation and/or procedure discussed and Patient agrees to continue as planned ADDITIONAL INFORMATION: Patient has been explained all risk-benefit and alternative for the procedure. Patient understand 2% risk of stroke major bleed. Patient understands 6% risk of acute limb ischemia vascular surgery urgent or emergent intervention, and amputation. Patient agrees to it and would like to proceed with it.
--- NOTE | 2025-04-13 13:42 | PM.PROC ---
Procedure Note: Date of procedure: 04/13/25 Pre-procedure diagnosis: Lifestyle-limiting claudication, PAD Post-procedure diagnosis: same Procedure: For lifestyle limiting claudication and inability to walk patient underwent peripheral angiogram noted to have chronically occluded left anterior tibial and high-grade mid tibioperoneal trunk stenosis, it was also noted that previously treated distal SFA and popliteal artery was patent however there were eccentric calcified lesion which appeared to be significant. Balloon angioplasty with 6.0 [place] balloon was performed in distal SFA and popliteal artery with good angiographic result Balloon angioplasty of high-grade mid tibioperoneal trunk with 4.0 balloon was performed with good angiographic result Chronically occluded highly calcified left anterior tibial artery was treated with CSI atherectomy multiple balloon angioplasty and scaffolding placement despite of that we were not able to open it up and it remained closed. Since patient has good two-vessel runoff with good flow through left SFA popliteal and tibioperoneal trunk we accepted the result. The end of the case left leg was warm moist with dopplerable posterior and anterior tibial pulses Angiomax was given since patient has alpha gal allergy and would not like to take heparin though heparin Continue dual antiplatelet therapy in the form of Plavix 75 mg and aspirin 81 mg Sheath will be pulled out in 3 hours Bedrest for 5 hours Possible discharge tomorrow For chronic kidney disease patient was started on the IV fluid from this morning. Continue 100 mL of fluid overnight. Check CBC BMP in the morning. Further plan will be devised as per progress of the patient. Plan to discharge tomorrow. Coding Level of Care Code Acute Code for Pawan Fwashley
[2025-04-14 00:02] VITALS: BP 140/75; PULSE 88; RESP 18; TEMP 37.1; O2SAT 98
[2025-04-14 04:07] LABS: Basophils % 0.4 %; Eosinophils # 0.3 10^3/uL (0.0-0.8); Eosinophils % 2.8 %; Hematocrit 42.7 % (37-53); Lymphocytes # 1.1 10^3/uL (0.8-4.8); Lymphocytes % 11.4 %; Mean Corpuscular HGB Conc 32.1 g/dL (30-55); Mean Corpuscular Hemoglobin 28.7 pg (27-33); Mean Corpuscular Volume 89.5 fl (82-101); Mean Platelet Volume 8.5 fL (7.4-10.4); Monocytes # 0.7 10^3/uL (0.2-0.9); Monocytes % 6.9 %; Neutrophils # 7.55 10^3/uL (1.8-7.7); Neutrophils % 78.1 %; Nucleated Red Blood Cells % 0 %; Platelet Count 212 10^3/cmm (157-399); Red Blood Count 4.77 10^6/uL (3.85-5.65); Red Cell Distribution Width 15.6 % (12.1-15.1); White Blood Count 9.67 10^3/uL (3.29-11.43)
[2025-04-14 04:31] LABS: Anion Gap 15.5 (5-19); Blood Urea Nitrogen 14 mg/dL (8-23); Calcium 8.7 mg/dL (8.5-10.5); Carbon Dioxide 23 mmol/L (22-29); Chloride 105 mmol/L (98-107); Creatinine Clr Calc Pharmacy 49.4549; Glucose 105 mg/dL (65-115); Osmolality Calculated 289 mOsm/kg (285-295); Potassium 4.5 mmol/L (3.5-5.1); Sodium 139 mmol/L (136-145)
[2025-04-14 04:38] VITALS: BP 148/83; PULSE 90; RESP 17; TEMP 37; O2SAT 97
[2025-04-14 07:35] VITALS: BP 141/80; PULSE 100; RESP 21; TEMP 36.6; O2SAT 97
[2025-04-14] MEDS: clopidogrel 75 mg Tablet PO (07:48)
[2025-04-14] MEDS: acetaminophen 325 mg Tablet 650 MG PO (07:48)
[2025-04-14] MEDS: aspirin 81 mg EC Tablet PO (07:48)
--- NOTE | 2025-04-14 09:40 | P.DS_ITS ---
<Statement entered by Bib Aleman MD - 04/15/25 21:15> Brought feeling better patient was evaluated and cared for in conjunction with an advanced practice practitioner. I personally examined the patient and reviewed the chart and all pertinent data including imaging, telemetry, and laboratory results. I discussed the patient in detail with the advanced practice practitioner. Please see their note for complete H&P testing result and agreed upon plan of care for the patient. Discharge Providers Date of Admission: 04/13/25 15:00 Date of Discharge: April 14, 2025 Attending Provider at Admission: Bib Aleman MD Attending Provider at Discharge: Bib Aleman MD Primary Care Provider: Lc Suarez MD Reason for Visit Reason for Visit: I73.9 Brief History: The patient is a 69-year-old male presenting with follow-up for peripheral artery disease and worsening claudication. He describes a significant relapse of symptoms with increased leg pain and walking limitations over the past two weeks. Previously, the patient underwent an angiogram and atherectomy for claudication, experiencing symptomatic relief initially. However, his current ability to walk has diminished significantly, with pain intensifying at shorter distances. Hospital Course Hospital Course Patient was brought for peripheral angiogram due to lifestyle limiting claudication. He underwent balloon angioplasty of the left distal SFA and popliteal, balloon angioplasty of the mid tibioperoneal trunk. BILINGUAL RECRUITER of the left anterior tibial treated with CSI atherectomy and balloon angioplasty with scaffolding placement, unsuccessful at revascularization. He has two-vessel runoff to the foot through the left SFA and tibioperoneal trunk. Pulses are strong by Doppler this morning, left foot is pink and warm. No complications with right femoral cath site. Will plan for discharge home today. Will continue Xarelto 2.5 mg daily and Plavix 75 mg daily, discontinue cilostazol. Encouraged exercise for collateralization. He has torsemide at home, encouraged him to take for 2 days after discharge to reduce edema of the legs/feet. Follow-up with the cardiology clinic in 7 to 10 days. Physical Exam Const: COMMON NORMALS: no acute distress and patient oriented x3 GENERAL APPEARANCE: cooperative ORIENTATION/CONSCIOUSNESS: Yes awake, Yes oriented to person, Yes oriented to place and Yes oriented to time Chest: COMMONS NORMALS: normal inspection of the chest and normal palpation of entire chest wall CHEST: Yes Symmetrical chest wall rise Resp: COMMON NORMALS: normal respiratory effort, No retractions, No use of accessory muscles and clear to auscultation bilaterally AUSCULTATION: clear to auscultation bilaterally Cardio: COMMON NORMALS: regular rate, regular rhythm, S1 normal heart sound present, S2 normal heart sound present, No gallops present (Cardio), No clicks present (Cardio), No murmurs present (Cardio) and No rub (Cardio) RATE: regular rate RHYTHM: regular rhythm HEART SOUNDS: S1 normal heart sound present and S2 normal heart sound present PERIPHERAL PULSES: radial pulses present positive right 2+ and femoral pulses present positive right 2+ Neuro: COMMON NORMALS: patient oriented x3 and moves all extremities SENSORIUM/ORIENTATION: Yes oriented to person, Yes oriented to place and Yes oriented to time Skin: WOUNDS: Yes surgical site (no hematoma palpable) Details: no odor Discharge Data Studies Completed and Pending Pending at discharge Category Date Time Status [employer] DIRECTOR request for service Routine Exams 04/13/25 07:30 Taken Laboratory Results WBC 9.67 10^3/uL (3.29-11.43) 04/14/25 03:37 RBC 4.77 10^6/uL (3.85-5.65) 04/14/25 03:37 Hgb 13.70 g/dL (11.27-16.99) 04/14/25 03:37 Hct 42.7 % (37-53) 04/14/25 03:37 MCV 89.5 fl (82-101) 04/14/25 03:37 MCH 28.7 pg (27-33) 04/14/25 03:37 MCHC 32.1 g/dL (30-55) 04/14/25 03:37 RDW 15.6 % (12.1-15.1) H 04/14/25 03:37 Plt Count 212 10^3/cmm (157-399) 04/14/25 03:37 MPV 8.5 fL (7.4-10.4) 04/14/25 03:37 Neut % (Auto) 78.1 % 04/14/25 03:37 Lymph % (Auto) 11.4 % 04/14/25 03:37 [place] % (Auto) 6.9 % 04/14/25 03:37 Eos % (Auto) 2.8 % 04/14/25 03:37 Baso % (Auto) 0.4 % 04/14/25 03:37 Neut # (Auto) 7.55 10^3/uL (1.8-7.7) 04/14/25 03:37 Lymph # (Auto) 1.1 10^3/uL (0.8-4.8) 04/14/25 03:37 [place] # (Auto) 0.7 10^3/uL (0.2-0.9) 04/14/25 03:37 Eos # (Auto) 0.3 10^3/uL (0.0-0.8) 04/14/25 03:37 Baso # (Auto) 0.0 10^3/uL (0.0-0.1) 04/14/25 03:37 Nucleated RBC % (auto) 0 % 04/14/25 03:37 Nucleated RBCs # 0.0 /100WBC 04/14/25 03:37 Sodium 139 mmol/L (136-145) 04/14/25 03:37 Potassium 4.5 mmol/L (3.5-5.1) 04/14/25 03:37 Chloride 105 mmol/L (98-107) 04/14/25 03:37 Carbon Dioxide 23 mmol/L (22-29) 04/14/25 03:37 Anion Gap 15.5 (5-19) 04/14/25 03:37 BUN 14 mg/dL (8-23) 04/14/25 03:37 Creatinine 1.4 mg/dL (0.7-1.2) H 04/14/25 03:37 GFR Calculation Not Reportable 04/14/25 03:37 Glucose 105 mg/dL (65-115) 04/14/25 03:37 Calculated Osmolality 289 mOsm/kg (285-295) 04/14/25 03:37 Calcium 8.7 mg/dL (8.5-10.5) 04/14/25 03:37 Vitals Last Vital Signs Temp 97.9 F 04/14/25 07:35 Pulse 100 04/14/25 07:35 Resp 21 H 04/14/25 07:35 BP 141/80 04/14/25 07:35 Pulse Ox 97 04/14/25 07:35 O2 Del Method Room Air 04/14/25 07:35 Discharge Plan Discharge Patient Disposition: Home Condition: Stable Prescriptions: Continued triamcinolone acetonide 0.1 % ointment 1 applic topical DAILY PRN (Reason: itch) albuterol sulfate 2.5 mg /3 mL (0.083 %) solution for nebulization 2.5 mg inhalation QID PRN (Reason: shortness of breath) Qty: 90 2RF (DME) nebulizer and supplies See Rx Instructions .Route .MEDSUPPLY Qty: 1 0RF Rx Instructions: As directed ipratropium bromide 0.02 % solution 2.5 ml inhalation Q6H PRN (Reason: shortness of breath or wheezing) Qty: 75 2RF triamcinolone acetonide [Nasacort] 55 mcg aerosol,spray 2 spray intranasal DAILY PRN (Reason: Allergy Symptoms) Rx Instructions: administer into each nostril potassium chloride [Klor-Con 10] 10 mEq tablet extended release 10 meq PO DAILY Qty: 60 1RF montelukast [Singulair] 10 mg tablet 10 mg PO DAILY Qty: 90 1RF Breo Ellipta 50-25 mcg/dose blister with device 1 inh inhalation DAILY Qty: 60 2RF torsemide [Soaanz] 20 mg tablet 20 mg PO QAM Qty: 30 1RF Xarelto 2.5 mg tablet 2.5 mg PO BID Qty: 90 3RF albuterol sulfate 90 mcg/actuation HFA aerosol inhaler 1 inh inhalation QID PRN (Reason: SOB) Qty: 6.7 3RF atorvastatin 40 mg tablet 40 mg PO DAILY clopidogrel 75 mg Tablet 75 mg PO DAILY cetirizine 10 mg Tablet 10 mg PO BID pantoprazole 40 mg tablet,delayed release (DR/EC) 40 mg PO DAILY amlodipine 5 mg tablet 7.5 mg PO DAILY Rx Instructions: TAKE 1 AND 1/2 TABLETS DAILY BY MOUTH Discontinued cilostazol 50 mg Tablet 50 mg PO BID Discharge Orders: Discharge Order (Routine); Ordered 04/14/25 Ordered By: Rupali Dempsey Referrals: Era Cameron NP [Nurse Practitioner, Cardiology] - 04/22/25 2:15 pm Lc Suarez MD [Primary Care Provider, Family Practice] - 04/30/25 9:30 am Discharge Diet: Advance as tolerated Discharge Activity: Increase activity as tolerated Patient Instructions: Peripheral Vascular Stent Placement (DC), Peripheral Vascular Angioplasty (DC), Opioid Safety, Post Angiogram Home Care Instructions Activity Restrictions/Additional Instructions: No lifting over 5 pounds for the next 4 days. Print Language: Belarusian Discharge Attestations Time Spent in Discharge Care*: less than 30 min Quality Metrics Clinical Quality Measures [ No reported AMI, CVA or VTE this stay] Coding Level of Care Code Acute Code for g Fwashley
[2025-04-14 10:20] VITALS: BP 137/72; PULSE 84; RESP 18; O2SAT 96
== END 2025-04-14 10:22 | disposition home or self-care (01) ==
LOC: CSU 17:38
PROVIDERS: Admitting Provider Internal Medicine Cardiovascular Disease; PCP Family Medicine; Visit Provider Internal Medicine Cardiovascular Disease
DX: I70.222 Atherosclerosis of native arteries of extremities with rest pain, left leg (principal); I77.1 Stricture of artery; I10 Essential (primary) hypertension; E78.5 Hyperlipidemia, unspecified; K21.9 Gastro-esophageal reflux disease without esophagitis; Z79.01 Long term (current) use of anticoagulants; Z91.014 Allergy to mammalian meats
CPT/HCPCS: 36415; 37224; 37231; 75710; 80048; 85025; 96374; 96375; 96376; 99152; 99153; C1724; C1725; C1769; C1874; C1887; C1894; G0378; J0583; J1200; J2250; J2270; J3010; J3490; J7030; J9999; Q9967

== ENCOUNTER → 2025-04-22 14:10 | Outpatient (BNVA) | payer MEDICARE, SELFPAY | PROVIDERS: PCP Family Medicine; Visit Provider Nurse Practitioner Family | DX: I73.9 Peripheral vascular disease, unspecified (principal); J44.9 Chronic obstructive pulmonary disease, unspecified; F17.210 Nicotine dependence, cigarettes, uncomplicated | CPT/HCPCS: 36415; 71046; 80048; 83880; 85025; 99213 ==

== ENCOUNTER 2025-05-26 09:24 | Outpatient (CLI) | payer MEDICARE, SELFPAY ==
--- NOTE | 2025-05-26 09:27 | XR_ITS ---
WS: [id number] XR chest 2V* [id number] REASON FOR EXAM: COPD FINDINGS: Flattening of the hemidiaphragms and multiple areas of lucency in the upper lung epstein indicate central lobar emphysema and bullous lung disease. The heart and mediastinum are within normal limits. There is increased opacity in the left lower hemithorax and blunting of the right costophrenic angle. No acute pulmonary parenchymal or pleural abnormality in the left hemithorax. Moderate degenerative spondylosis in the mid and lower thoracic spine. XR/XR chest 2V* [id number] IMPRESSION: Central lobar emphysema and bullous lung disease. Findings suggestive of pleural effusion with right lower lobe and possibly righ t middle lobe atelectasis. Likely patient is or was a heavy smoker. CT of the chest with contrast is recom mended in follow-up evaluation to rule out occult right lung neoplasm.
== END 2025-05-26 09:25 | disposition home or self-care (01) ==
LOC: RAD 09:25
PROVIDERS: PCP Family Medicine; Visit Provider Family Medicine
DX: J43.2 Centrilobular emphysema (principal)
CPT/HCPCS: 71046

== ENCOUNTER 2025-06-02 09:46 | Outpatient (CLI) | payer MEDICARE, SELFPAY ==
--- NOTE | 2025-06-02 10:00 | CT_ITS ---
WS: [id number] LDCT LUNG CANCER SCREENING TECHNIQUE: Noncontrast CT of the chest with coronal and sagittal reformatted images. CLINICAL INFORMATION: screening COMPARISON: None. DLP: 59.09 mGy.cm DIvol: Mean CTDIvol: 1.00 (mGy) All CT scans at [facility] use at least one of these dose optimization techniques: automated exposure control; mA and/or kV adjustment per patient size (includes targeted exams where dose is matched to clinical indication); or iterative reconstruction. FINDINGS: Emphysematous changes. Subsegmental atelectasis in the lung bases. Mild bronchiectasis. Subsegmental atelectasis in the lingula and RIGHT middle lobe. Tiny noncalcified nodule LEFT lower lobe. No suspicious pulmonary parenchymal abnormalities. Aberrant RIGHT subclavian artery. Aortic calcification. Coronary calcification. No mediastinal or hilar lymphadenopathy. No axillary lymphadenopathy. Tiny esophageal hiatal hernia. Adrenal glands are normal. Mild thoracic curve. Mild thoracic kyphosis. Hypertrophic changes in the thoracic spine. CT/CT lung screening [id number] IMPRESSION: LUNG-RADS: 2-Benign Appearance or Behavior FOLLOW UP: 12 Month: Continue annual screening with LDCT
== END 2025-06-02 09:47 | disposition home or self-care (01) ==
LOC: RAD 09:47
PROVIDERS: PCP Family Medicine; Visit Provider Family Medicine
DX: Z12.2 Encounter for screening for malignant neoplasm of respiratory organs (principal); F17.219 Nicotine dependence, cigarettes, with unspecified nicotine-induced disorders
CPT/HCPCS: 71271

== ENCOUNTER → 2025-07-23 10:47 | Outpatient (BNVA) | payer MEDICARE, SELFPAY | PROVIDERS: PCP Family Medicine; Visit Provider Internal Medicine Cardiovascular Disease | DX: I73.9 Peripheral vascular disease, unspecified (principal); J44.9 Chronic obstructive pulmonary disease, unspecified; R42 Dizziness and giddiness; Z79.01 Long term (current) use of anticoagulants; F17.210 Nicotine dependence, cigarettes, uncomplicated | CPT/HCPCS: 99214 ==

== ENCOUNTER → 2025-09-02 08:18 | Outpatient (BNVA) | payer MEDICARE, SELFPAY | PROVIDERS: PCP Family Medicine; Visit Provider Internal Medicine | DX: J47.9 Bronchiectasis, uncomplicated (principal); J98.4 Other disorders of lung; R91.1 Solitary pulmonary nodule; C49.A0 Gastrointestinal stromal tumor, unspecified site; Z99.81 Dependence on supplemental oxygen | CPT/HCPCS: 36415; 82103; 82784; 85025; 99204; 99214; Q3014 ==

== ENCOUNTER 2025-10-13 08:00 | Outpatient (CLI) | payer MEDICARE, SELFPAY ==
[2025-10-13 08:25] VITALS: PULSE 62; RESP 18; O2SAT 94
== END 2025-10-13 08:01 | disposition home or self-care (01) ==
PROVIDERS: PCP Family Medicine; Visit Provider Internal Medicine
DX: J44.9 Chronic obstructive pulmonary disease, unspecified (principal)
CPT/HCPCS: 94060; 94726; 94729; J7613

== ENCOUNTER → 2025-10-14 14:04 | Outpatient (BNVA) | payer MEDICARE, SELFPAY | PROVIDERS: PCP Family Medicine; Visit Provider Internal Medicine | DX: J47.9 Bronchiectasis, uncomplicated (principal); R76.89 Other specified abnormal immunological findings in serum; Z87.01 Personal history of pneumonia (recurrent); R91.1 Solitary pulmonary nodule; Z71.6 Tobacco abuse counseling; F17.210 Nicotine dependence, cigarettes, uncomplicated | CPT/HCPCS: 99214; Q3014 ==